=== PATIENT | female | born 1980 | race Two or more races ===

== ENCOUNTER → 2025-07-20 | Outpatient (CLI) | payer MEDICAID, SELFPAY ==
--- NOTE | 2025-07-20 09:00 | XR_ITS ---
Examination: Esophagram standard Fluoroscopy 13 spot fluoroscopic films of the esophagus Upright PA chest single view Upright soft tissue lateral neck single view Date and time: July 20, 2025 0936 hours INDICATIONS: Difficulty swallowing beginning 4 years ago. TECHNIQUE AND FINDINGS: Upright PA chest single view demonstrates normal heart size, lungs are clear Soft tissue lateral neck demonstrates normal epiglottis, satisfactory alignment cervical vertebral bodies Patient swallowed thin barium with primary peristaltic esophageal waves noted There is a small filling defect in the wall of the esophagus, image 13, measuring 5 mm There is mild intermittent gastroesophageal reflux There is no stricture the gastroesophageal junction IMPRESSION: Persistent filling defect in the wall of the esophagus 5 mm, mid esophagus level Recommend endoscopy follow-up to exclude early esophageal carcinoma
== END | disposition home or self-care (01) ==
PROVIDERS: Referring Provider Internal Medicine Gastroenterology; Visit Provider Internal Medicine Gastroenterology
DX: K22.89 Other specified disease of esophagus (principal)
CPT/HCPCS: 74220; A4649